=== PATIENT | female | born 1985 | race Asian ===

== ENCOUNTER 2023-02-28 16:18 | Observation (INO) | payer OTHER ==
[2023-02-28 16:24] VITALS: BMI 28.3
[2023-02-28] MEDS ORDERED: SODIUM CHLORIDE 0.9% 500 ML INFUS.BAG IV ONE (17:17)
[2023-02-28] MEDS ORDERED: ACETAMINOPHEN 1000 MG/100 ML BAG IVPB ONE (17:17)
[2023-02-28] MEDS ORDERED: KETOROLAC TROMETHAMINE 30 MG/1 ML VIAL IVPUSH ONE (17:17)
[2023-02-28] MEDS ORDERED: ACETAMINOPHEN INJECTION 100 ML IVPB ONE (17:47)
[2023-02-28] MEDS ORDERED: KETOROLAC TROMETHAMINE 60 MG/2 ML VIAL ONE (17:47)
[2023-02-28 18:19] LABS: BASO % 0.1 % (0-2.0); EOS % 1.3 % (0-4.5); EPI CELLS 29 /uL (0-25.1); HEMATOCRIT 33.8 % (32.4-45.2); HEMOGLOBIN 10.8 GM/dL (10.7-15.3); HYALINE CASTS 1 /uL (0-3.1); LYMPH % 3.8 % (8-40); MCH 25.5 pg (25.7-33.7); MCHC 32.1 g/dl (32.0-36.0); MEAN CELL VOLUME 79.5 fl (80-96); MEAN PLT VOLUME 9.3 fl (7.5-11.1); MONO % 1.3 % (3.8-10.2); NEUT % 93.5 % (42.8-82.8); PH,URINE 5.5 (5.0-8.0); PLATELET COUNT 272 10^3/uL (134-434); RBC 4.25 M/mm3 (3.60-5.2); RDW 14.1 % (11.6-15.6); URINE APPEARANCE CLEAR; URINE BACTERIA 15 /uL (0-1359); URINE BILIRUBIN NEGATIVE (NEGATIVE); URINE COLOR YELLOW; URINE GLUCOSE (UA) NEGATIVE (NEGATIVE); URINE KETONE NEGATIVE (NEGATIVE); URINE LEUK ESTERASE 1+ (NEGATIVE); URINE NITRITE NEGATIVE (NEGATIVE); URINE PROTEIN TRACE (NEGATIVE); URINE RBC 413 /uL (0-23.9); URINE WBC 43 /uL (0-25.8); WHITE BLOOD COUNT 28.6 K/mm3 (4.0-10.0)
[2023-02-28 18:53] LABS: POTASSIUM 4.3 mmol/L (3.5-5.1)
[2023-02-28 18:55] LABS: BLOOD UREA NITROGEN 10.7 mg/dL (7-18); CALCIUM 8.6 mg/dL (8.5-10.1)
[2023-02-28 19:00] LABS: BILIRUBIN,TOTAL 0.7 mg/dL (0.2-1); TOT PROT 6.5 g/dl (6.4-8.2)
[2023-02-28 19:12] LABS: ANISOCYTOSIS 1+; MACROCYTOSIS 0
[2023-02-28 23:15] LABS: HCG,QUALITATIVE URINE Negative
[2023-03-01] MEDS: SODIUM CHLORIDE 1,000 ML IV SCH (01:08)
[2023-03-01 03:36] LABS: HIV INTERPRETATION NEGATIVE (NEGATIVE)
[2023-03-01] MEDS ORDERED: ACETAMINOPHEN 1000 MG/100 ML BAG IVPB ONE (05:57)
[2023-03-01] MEDS ORDERED: ACETAMINOPHEN INJECTION 100 ML IVPB ONE (06:03)
[2023-03-01 06:19] LABS: BASO % 0.1 % (0-2.0); EOS % 4.4 % (0-4.5); HEMATOCRIT 30.3 % (32.4-45.2); HEMOGLOBIN 9.6 GM/dL (10.7-15.3); LYMPH % 8.5 % (8-40); MCH 25.5 pg (25.7-33.7); MCHC 31.7 g/dl (32.0-36.0); MEAN CELL VOLUME 80.6 fl (80-96); MEAN PLT VOLUME 9.7 fl (7.5-11.1); MONO % 1.8 % (3.8-10.2); NEUT % 85.2 % (42.8-82.8); PLATELET COUNT 236 10^3/uL (134-434); RBC 3.76 M/mm3 (3.60-5.2); RDW 13.9 % (11.6-15.6); WHITE BLOOD COUNT 16.6 K/mm3 (4.0-10.0)
[2023-03-01 06:43] LABS: POTASSIUM 4.1 mmol/L (3.5-5.1)
[2023-03-01 06:45] LABS: ALBUMIN 2.5 g/dl (3.4-5.0); BLOOD UREA NITROGEN 10.7 mg/dL (7-18); CALCIUM 7.7 mg/dL (8.5-10.1); MAGNESIUM 2.1 mg/dL (1.8-2.4)
[2023-03-01 06:48] LABS: CREATININE 0.8 mg/dL (0.55-1.3)
[2023-03-01 06:49] LABS: PHOSPHOROUS 2.1 mg/dL (2.5-4.9)
[2023-03-01 06:50] LABS: BILIRUBIN,TOTAL 0.4 mg/dL (0.2-1); TOT PROT 5.6 g/dl (6.4-8.2)
[2023-03-01] MEDS ORDERED: CEFTRIAXONE 1 GM/50 ML BAG ONE (11:52)
[2023-03-01] MEDS: CEFTRIAXONE 1 GM in DEXTROSE 5%-WATER - 50 ML IVPB SCH (12:09)
[2023-03-01] MEDS: INDOMETHACIN 50 MG CAPSULE PO SCH ×3 (12:09→23:00)
[2023-03-01] MEDS: HEPARIN NA (PORCINE) 5,000 UNITS/ML 1ML VIAL SQ SCH (22:59)
[2023-03-01] MEDS ORDERED: PANTOPRAZOLE 40 MG TABLET PO ONE (23:52)
[2023-03-02] MEDS: SODIUM CHLORIDE 1,000 ML IV SCH (00:38)
[2023-03-02 04:39] VITALS: PULSE 71
[2023-03-02] MEDS: HEPARIN NA (PORCINE) 5,000 UNITS/ML 1ML VIAL SQ SCH ×2 (06:57→14:26)
[2023-03-02] MEDS: INDOMETHACIN 50 MG CAPSULE PO SCH ×2 (06:59→14:24)
[2023-03-02 08:31] LABS: BASO % 0.3 % (0-2.0); EOS % 4.7 % (0-4.5); HEMATOCRIT 28.2 % (32.4-45.2); HEMOGLOBIN 9.1 GM/dL (10.7-15.3); LYMPH % 30.2 % (8-40); MCH 25.9 pg (25.7-33.7); MCHC 32.1 g/dl (32.0-36.0); MEAN CELL VOLUME 80.7 fl (80-96); MONO % 3.8 % (3.8-10.2); PLATELET COUNT 224 10^3/uL (134-434); RDW 13.5 % (11.6-15.6); WHITE BLOOD COUNT 6.6 K/mm3 (4.0-10.0)
[2023-03-02 08:53] LABS: POTASSIUM 4.8 mmol/L (3.5-5.1)
[2023-03-02 08:57] LABS: CALCIUM 8.1 mg/dL (8.5-10.1)
[2023-03-02 08:58] LABS: ALBUMIN 2.3 g/dl (3.4-5.0); BLOOD UREA NITROGEN 13.2 mg/dL (7-18)
[2023-03-02 09:01] LABS: CREATININE 0.7 mg/dL (0.55-1.3)
[2023-03-02 09:02] LABS: TOT PROT 5.2 g/dl (6.4-8.2)
[2023-03-02 09:03] LABS: BILIRUBIN,TOTAL 0.2 mg/dL (0.2-1)
[2023-03-02] MEDS ORDERED: FAMOTIDINE 20 MG TABLET PO SCH (10:00)
[2023-03-02] MEDS: CEFTRIAXONE 1 GM in DEXTROSE 5%-WATER - 50 ML IVPB SCH (10:15)
[2023-03-02 15:07] LABS: PARV B19 IGG 7.1 index (0.0-0.8); PARV B19 IGM 0.3 index (0.0-0.8)
[2023-03-02 15:28] VITALS: BP 137/95; RESP 20; TEMP 98.1
[2023-03-05 16:14] LABS: ATYPICAL pANCA <1:20 titer (Neg:<1:20); C-ANCA <1:20 titer (Neg:<1:20)
[2023-03-05 18:07] LABS: WEST NILE VIRUS AB SERUM,IGM Negative (Negative)
== END 2023-03-02 19:00 | disposition home or self-care (01) ==
LOC: JER 16:18 → JERBED 21:15 → J7W 03-01 20:51
PROVIDERS: ADMIT Internal Medicine
PROC: 3E03329 Introduction of Other Anti-infective into Peripheral Vein, Percutaneous Approach (ICD-10-PCS; principal; 2023-02-28)
PROC: 3E033NZ Introduction of Analgesics, Hypnotics, Sedatives into Peripheral Vein, Percutaneous Approach (ICD-10-PCS; 2023-02-28)
PROC: 3E023GC Introduction of Other Therapeutic Substance into Muscle, Percutaneous Approach (ICD-10-PCS; 2023-02-28)
PROC: 3E0333Z Introduction of Anti-inflammatory into Peripheral Vein, Percutaneous Approach (ICD-10-PCS; 2023-02-28)
PROC: 3E0337Z Introduction of Electrolytic and Water Balance Substance into Peripheral Vein, Percutaneous Approach (ICD-10-PCS; 2023-02-28)
DX: R68.89 Other general symptoms and signs (principal); N39.0 Urinary tract infection, site not specified; E78.5 Hyperlipidemia, unspecified; K21.9 Gastro-esophageal reflux disease without esophagitis; E66.9 Obesity, unspecified; R05.9 Cough, unspecified; R21 Rash and other nonspecific skin eruption; R50.9 Fever, unspecified; R11.2 Nausea with vomiting, unspecified; M25.50 Pain in unspecified joint
CPT/HCPCS: 0241U-QW; 36415; 71046-TC-FY; 74177-TC; 80053; 81003; 81374; 82728; 82930; 83036; 83520; 83735; 84100; 84703; 85025; 85651; 86038; 86140; 86256; 86308; 86431; 86480; 86618; 86666; 86747; 86788; 86789; 86790; 87040; 87086; 87207; 87389; 87491; 87591; 87651; 87798; 87799; 93005; 93010; 96360; 96365; 96372; 96375; 97116-GP; 97161-GP; 99285-25; G0378; J1644; Q9967

== ENCOUNTER 2023-11-24 16:05 | Emergency (ER) | payer OTHER ==
[2023-11-24 16:30] VITALS: RESP 20; BMI 29.2
[2023-11-24] MEDS ORDERED: ACETAMINOPHEN INJECTION 100 ML IVPB ONE (16:46)
[2023-11-24] MEDS: SODIUM CHLORIDE 2,313 ML IV ONE (17:01)
[2023-11-24] MEDS: ACETAMINOPHEN 1000 MG/100 ML BAG IVPB ONE (17:01)
[2023-11-24 17:24] LABS: BASO % 0.1 % (0-2.0); HEMATOCRIT 35.3 % (32.4-45.2); HEMOGLOBIN 11.9 GM/dL (10.7-15.3); LYMPH % 6.3 % (8-40); MCH 26.7 pg (25.7-33.7); MCHC 33.6 g/dl (32.0-36.0); MEAN CELL VOLUME 79.6 fl (80-96); MEAN PLT VOLUME 9.6 fl (7.5-11.1); MONO % 2.7 % (3.8-10.2); NEUT % 90.9 % (42.8-82.8); PLATELET COUNT 255 10^3/uL (134-434); RBC 4.44 M/mm3 (3.60-5.2); RDW 13.8 % (11.6-15.6); WHITE BLOOD COUNT 15.8 K/mm3 (4.0-10.0)
[2023-11-24 17:25] LABS: EPI CELLS >36 /uL (0-25.1); HYALINE CASTS 1 /uL (0-3.1); PH,URINE 5.5 (5.0-8.0); URINE APPEARANCE TURBID; URINE BACTERIA 1327 /uL (0-1359); URINE BILIRUBIN NEGATIVE (NEGATIVE); URINE COLOR YELLOW; URINE GLUCOSE (UA) NEGATIVE (NEGATIVE); URINE KETONE NEGATIVE (NEGATIVE); URINE LEUK ESTERASE 3+ (NEGATIVE); URINE NITRITE NEGATIVE (NEGATIVE); URINE PROTEIN TRACE (NEGATIVE); URINE RBC 24 /uL (0-23.9); URINE WBC 1119 /uL (0-25.8)
[2023-11-24 17:27] LABS: POTASSIUM 3.6 mmol/L (3.5-5.1)
[2023-11-24 17:30] LABS: ALBUMIN 3.8 g/dl (3.4-5.0); BLOOD UREA NITROGEN 8.5 mg/dL (7-18)
[2023-11-24 17:33] LABS: CREATININE 0.9 mg/dL (0.55-1.3)
[2023-11-24 17:34] LABS: TOT PROT 7.5 g/dl (6.4-8.2)
[2023-11-24 17:35] LABS: BILIRUBIN,TOTAL 1.2 mg/dL (0.2-1)
[2023-11-24] MEDS ORDERED: CEFTRIAXONE 1 GM/50 ML BAG ONE (17:46)
[2023-11-24 18:54] VITALS: BP 107/63; PULSE 102; TEMP 99.3
== END 2023-11-24 19:30 | disposition home or self-care (01) ==
LOC: JER 16:05
PROC: 3E033NZ Introduction of Analgesics, Hypnotics, Sedatives into Peripheral Vein, Percutaneous Approach (ICD-10-PCS; principal; 2023-11-24)
PROC: 3E03329 Introduction of Other Anti-infective into Peripheral Vein, Percutaneous Approach (ICD-10-PCS; 2023-11-24)
PROC: 3E0337Z Introduction of Electrolytic and Water Balance Substance into Peripheral Vein, Percutaneous Approach (ICD-10-PCS; 2023-11-24)
DX: A08.4 Viral intestinal infection, unspecified (principal); R10.31 Right lower quadrant pain; R10.32 Left lower quadrant pain; R50.9 Fever, unspecified; R00.0 Tachycardia, unspecified; Z20.822 Contact with and (suspected) exposure to COVID-19
CPT/HCPCS: 0241U-QW; 36415; 71045-TC-FY; 74177-TC; 80053; 81003; 84703; 85025; 87086; 99285-25; J0131